=== PATIENT | female | born 1955 | race Caucasian/White ===

== ENCOUNTER 2016-08-20 21:02 | Emergency (ER) | payer MEDICARE, OTHER ==
[~2016-08-20 21:02] MED LIST: AVINZA30 PO; B12100T PO; ESTRACE1 MG PO; FERROUS SULF325 M1 PO; FLEX PO; GOODY'S EX-STR1 EAC1 PO; LAMICTAL150 MG PO; LINZESS 290 M290 MCG PO; MSCONTIN PO; NEUR300 PO; NORCO1 TA2 PO; PRIN20 PO; SEROQUEL XR400 MG PO; ZOCOR40 PO; ZOFRAN4 PO
== END 2016-08-20 21:09 | disposition home or self-care (01) ==
LOC: ER 21:02
DX: G89.29 Other chronic pain (principal); F17.200 Nicotine dependence, unspecified, uncomplicated; F31.9 Bipolar disorder, unspecified; Z90.710 Acquired absence of both cervix and uterus; Z90.49 Acquired absence of other specified parts of digestive tract; Z88.8 Allergy status to other drugs, medicaments and biological substances; Z79.899 Other long term (current) drug therapy
CPT/HCPCS: 99283; A9270-GY